=== PATIENT | female | born 2000 | race Two or more races ===

== ENCOUNTER 2024-08-28 15:21 | Emergency (ER) | payer MEDICAID, SELFPAY ==
[2024-08-28 15:22] VITALS: BMI 42.5
--- NOTE | 2024-08-28 15:44 | XR_ITS ---
Examination: Complete OB ultrasound, less than 14 weeks, transabdominal Date and time of exam: August 28, 2024 1634 hrs. Indications: Pelvic pain beginning 3 days ago Technique: Obstetrical ultrasound images less than 14 weeks performed via transabdominal imaging Findings: A normal shaped single intrauterine gestation is present in the uterus. CRL 3.3 cm corresponds to 10 weeks 1 day gestational age Cardiac motion 160 BPM Ultrasonographic survey of visible and placental structures unremarkable. Amniotic fluid volume appears appropriate for this estimated gestational age. Right ovary 3.3 cm arterial flow Left ovary 3.5 cm arterial flow 16mm follicular cyst Impression: Viable intrauterine gestation 10 weeks 1 day
--- NOTE | 2024-08-28 15:44 | PD.EDRME ---
Rapid Medical Screening Exam RME Arrival date/time: 08/28/24 15:21 24-year-old female G2, presents to the emergency department today with complaints of pelvic pain and abdominal pain currently reports being approximately 9 weeks Chief Complaint: Abdominal Pain
[2024-08-28 15:45] VITALS: BP 131/81; PULSE 96; RESP 18; TEMP 36.9; O2SAT 99
[2024-08-28 16:19] LABS: Basophils % (Auto) 0 % (0-2.5); Eosinophils % (Auto) 0 % (0-10); Hematocrit 35.7 % (36.0-46.0); Hemoglobin 11.7 g/dL (12.0-16.0); Immature Granulocytes % (Auto) 0 % (0-0); Immature Granulocytes Auto 0.02 Thou/mm3 (0.00-0.00); Lymphocytes % (Auto) 18 % (10-50); Mean Corpuscular HGB Conc 32.8 g/dl (31.0-37.0); Mean Corpuscular Hemoglobin 25.2 pg (25.0-35.0); Mean Corpuscular Volume 77 fL (80-100); Monocytes # (Auto) 0.6 Thou/mm3 (0.0-0.8); Monocytes % (Auto) 10 % (0-12); Neutrophils % (Auto) 72 % (37-80); Nucleated Red Blood Cell % 0 /100 WBC (0); Platelet Count 193 Thou/mm3 (140-440); RDW Standard Deviation 39.2 fL (36.4-46.3); Red Blood Count 4.64 Miln/mm3 (4.00-5.20); White Blood Count 5.6 Thou/mm3 (3.6-11.0)
[2024-08-28 16:56] LABS: Anion Gap 10 (7-16); BUN/Creatinine Ratio 10 Ratio (12-20); Blood Urea Nitrogen 6 mg/dL (9-23); Calcium 9.5 mg/dL (8.3-10.6); Carbon Dioxide 23.3 mMol/L (20.0-31.0); Chloride 103 mMol/L (98-107); Creatinine (Component) 0.6 mg/dL (0.6-1.3); Estimated Creatinine Clearance 172.6 mL/min (>60); Glucose 96 mg/dL (74-106); Osmolality,Calculated 269 (275-295); Potassium 3.2 mMol/L (3.4-5.1); Sodium 136 mMol/L (136-145); eGFR > 60 See Note
[2024-08-28 16:57] LABS: Alanine Aminotransferase 11 U/L (10-49); Albumin, Serum 4.1 gm/dL (3.5-5.0); Albumin/Globulin Ratio 1.5 (1.2-2.2); Alkaline Phosphatase 67 U/L (46-116); Aspartate Amino Transferase 16 U/L (0-34); Bilirubin,Total 0.3 mg/dL (0.3-1.2); Calcium (Corrected) 9.5 mg/dL (8.5-10.1); Globulin 2.7 gm/dL (2.3-3.5); Lipase 27 U/L (12-53); Total Protein 6.8 gm/dL (5.7-8.2)
[2024-08-28 17:08] LABS: Collection Type, Urine Clean Catch
[2024-08-28 17:12] LABS: HCG Qualitative,Urine Positive
[2024-08-28 17:21] LABS: Beta HCG,Quantitative 58935 mIU/mL (<5.0)
[2024-08-28 17:25] LABS: Bacteria,Urine Rare; Bilirubin,Urine Negative (Negative); Blood,Urine 1+ (Negative); Clarity,Urine Clear (Clear/Hazy); Color,Urine Lt-Yellow (Lt Yel-Yel); Culture Indicated,Urine Not Indicated; Glucose, Urine Negative (Negative); Ketones,Urine Negative (Negative); Leukocyte Esterase,Urine Negative (Negative); Nitrite,Urine Negative (Negative); PH,Urine 6.5 (5.0-7.0); Protein,Urine Negative (Neg - Trace); RBC,Urine 1 /hpf (0-3); Specific Gravity,Urine 1.007 (1.001-1.035); Squamous Epithelial Cell,Urine < 1 /hpf (0-5); Urobilinogen,Urine Negative mg/dL (0.0-1.0); WBC,Urine 1 /hpf (0-5)
--- NOTE | 2024-08-28 18:57 | PD.EDABDPN ---
ED Abdominal Pain RME/HPI General Chief Complaint: Abdominal Pain Stated complaint: 10WKS OB; GENERALIZED ABD PAIN X3DAYS Time seen by provider: 08/28/24 18:33 Arrival date/time: 08/28/24 15:21 24-year-old female A1 approximately 10 weeks presents emergency department complaining of lower abdominal pain that has been ongoing for 3 days. Patient denies any fever, chills, vomiting, vaginal bleeding, or dysuria. Source: patient Mode of arrival: ambulatory Limitations: no limitations RME / HPI RME / HPI narrative: 08/28/24 15:21 24-year-old female G2, presents to the emergency department today with complaints of pelvic pain and abdominal pain currently reports being approximately 9 weeks Related Data Allergies Allergy/AdvReac Type Severity Reaction Status Date / Time Penicillins Allergy Severe Hives Verified 08/28/24 15:26 Review of Systems Review of Systems Systems Reviewed: All systems reviewed, normal except as documented Constitutional Constitutional: Reports system reviewed and no additional complaints, except as documented, Denies body ache(s), Denies chills and Denies fever(s) Eyes Eyes: Reports system reviewed and no additional complaints, except as documented and Denies change in vision ENT Ears, Nose, Mouth, and Throat: Reports system reviewed and no additional complaints, except as documented, Denies disequilibrium, Denies dizziness, Denies sore throat and Denies vertigo Cardiovascular Cardiovascular: Reports system reviewed and no additional complaints, except as documented, Denies chest pain and Denies dyspnea Respiratory Respiratory: Reports system reviewed and no additional complaints, except as documented, Denies chest congestion, Denies cough and Denies dyspnea Gastrointestinal Gastrointestinal: Reports system reviewed and no additional complaints, except as documented, Reports abdominal pain, Denies nausea and Denies vomiting Musculoskeletal Musculoskeletal: Reports system reviewed and no additional complaints, except as documented, Denies abnormal gait and Denies arthralgias Integumentary/Breasts Skin/Breast: Reports system reviewed and no additional complaints, except as documented, Denies erythema, Denies rash and Denies wounds Neurologic Neurologic: Reports system reviewed and no additional complaints, except as documented, Denies abnormal gait, Denies disequilibrium, Denies dizziness and Denies vertigo Past Medical History Social History SMOKING STATUS: Light (< 1 pack/day) ED Exam General Limitations: Present no limitations General appearance: Present alert and in no apparent distress Head Head exam: Present atraumatic Eye Eye exam: Present normal appearance, PERRL and EOMI ENT ENT exam: Present normal exam, normal oropharynx and mucous membranes moist Neck Neck exam: Present normal inspection, full ROM and trachea midline Chest Chest inspection: Present normal inspection and symmetric chest wall rise Respiratory Respiratory exam: Present normal lung sounds bilaterally Cardiovascular Cardiovascular exam: Present regular rate, normal rhythm and normal heart sounds Abdominal Exam Abdominal exam: Present soft and normal bowel sounds Extremities Exam Extremities exam: Present normal inspection and full ROM Back Exam Back exam: Present normal inspection and full ROM Neurological Exam Neurological exam: Present alert, oriented X3 and CN II-XII intact Psychiatric Psychiatric exam: Present normal affect and normal mood Skin Skin exam: Present warm, dry, intact and normal color Course Quality Measures none Orders Category Date Time Status US OB <= 14 weeks fetus Stat Exams 08/28/24 15:44 Completed ABO/RH Type Stat Lab 08/28/24 15:51 Completed Beta HCG,Quantitative Stat Lab 08/28/24 15:51 Completed CBC Stat Lab 08/28/24 15:51 Completed Comprehensive Metabolic Panel Stat Lab 08/28/24 15:51 Completed HCG Qualitative,Urine Stat Lab 08/28/24 16:58 Completed Lipase Stat Lab 08/28/24 15:51 Completed UA, C/S IF [Urinalysis, C/S if Indicated] Stat Lab 08/28/24 16:58 Completed Vital Signs Vital signs: Vital Signs Temperature 98.5 F 08/28/24 15:45 Pulse Rate 96 08/28/24 15:45 Respiratory Rate 18 08/28/24 15:45 Blood Pressure 131/81 H 08/28/24 15:45 Pulse Oximetry (%) 99 08/28/24 15:45 Oxygen Delivery Method Room Air 08/28/24 15:45 99% room air with normal limits Abdominal Pain MDM MDM Narrative MDM Narrative:: 24-year-old female A1 approximately 10 weeks presents emergency department complaining of lower abdominal pain that has been ongoing for 3 days. Patient denies any fever, chills, vomiting, vaginal bleeding, or dysuria. CBC was unremarkable for any leukocytosis with hemoglobin of 11.7 CMP was unremarkable for any elevated LFTs or gross electro abnormalities. Beta-hCG 58 935. Urinalysis was unremarkable. Ultrasound findings: A normal shaped single intrauterine gestation is present in the uterus. CRL 3.3 cm corresponds to 10 weeks 1 day gestational age Cardiac motion 160 BPM Ultrasonographic survey of visible and placental structures unremarkable. Amniotic fluid volume appears appropriate for this estimated gestational age. Right ovary 3.3 cm arterial flow Left ovary 3.5 cm arterial flow 16mm follicular cyst Patient appears nontoxic and is hemodynamically stable. Patient instructed to follow-up with [facility] and return to emergency department for any worsening symptoms or as needed. Patient data External records reviewed:: None Clinical information provided by:: patient Social determinants that could affect healthcare access:: none Patient has the following chronic illnesses:: None How is presenting disease/condition affected by chronic disease/condition?: no chronic disease Evaluation data The following diagnostics were reviewed and interpreted by me:: lab results and radiology exam(s) Lab and/or radiology exams considered but not ordered:: Ordered Interpretation Summary: Interpreted by me Medications / Prescriptions Medications or Prescriptions considered but not ordered:: N/A Medication administrations:: N/A Consultations Consultation(s) initiated? (list below): No Diagnosis Differential diagnosis abdominal pain: abdominal pain, acute appendicitis, constipation, diverticulitis, endometriosis, gastroenteritis, pancreatitis, small bowel obstruction and other Most likely diagnosis given after review of the tests above:: Abdominal pain affecting Admission Indicated Admission indicated?: not indicated Admission Request Was there a request for admission?: No Disposition Plan Disposition Plan: Discharge Discharge Attestation Discharge Attestation: The patient and all family members were given an opportunity to ask questions and understood the discharge instructions. Discharge instructions specifically effects, indications for sooner follow up or return to the emergency department, and the expected course of current diagnosis. Patient condition: Stable Discharge Plan Plan Patient Disposition: HOME (Self Care) Disposition Comment: Stable Prescriptions/Referrals Referrals: No Primary/Family,Physician [Primary Care Provider] - In 1 week Problem List Clinical Impression: Abdominal pain affecting Patient/Caregiver Discharge Instructions Discharge Activity: activity as tolerated Education Materials: Abdominal Pain, ED Abdominal Pain Unkn Cause Fem Additional Instructions: Drink plenty of fluids and get plenty of rest. Pelvic rest until you see [facility]. Take Tylenol as needed for pain. Follow-up with [facility] in 2 to 3 days. Return to emergency department for any worsening symptoms or as needed. Print Language: Italian Stand Alone Forms: Emilia Award Info., Patient Portal Info Letter PA/RN INTERNSHIP Supervising Physician PA/RN INTERNSHIP Supervising Physician: Dr. Mcdonald
== END 2024-08-28 19:12 | disposition home or self-care (01) ==
PROVIDERS: Nurse Practitioner Primary Care; Emergency Provider Emergency Medicine
DX: O34.81 Maternal care for other abnormalities of pelvic organs, first trimester (principal); N83.02 Follicular cyst of left ovary; Z3A.10 10 weeks gestation of pregnancy
CPT/HCPCS: 36415; 76801; 80053; 81001; 81025; 83690; 84702; 85025; 86900; 86901; 99284

== ENCOUNTER 2025-02-26 10:37 | Outpatient (AMB) | payer MEDICAID, SELFPAY ==
[2025-02-26 11:01] VITALS: BP 106/61; PULSE 66; RESP 14; TEMP 35.5; O2SAT 98; BMI 44.6
--- NOTE | 2025-02-26 11:01 | OBCLNT_ITS ---
Vital Signs 02/26/25 11:01 Height 1.6 m Height Method Stated Weight 114.475 kg Weight Measurement Method Standing Scale BMI 44.6 BP 106/61 Blood Pressure Source Automatic Cuff Blood Pressure Location Left Upper Arm Position Sitting Respiration 14 Pulse 66 Pulse Source Monitor Temp 95.9 F L Temp Source Oral Pulse Oximetry (%) 98 Oxygen Delivery Method Room Air Allergies/Home Meds Allergies & Medications Allergies Penicillins Allergy (Severe, Verified 02/26/25 11:02) Hives Medication Reconciliation vits no.130-ferrous fum 27 mg iron-folic acid 800 mcg tablet ( Vitamin) 1 tab PO QDAY pregancy #60 tabs 02/26/25 [Rx] Intake Visit Data Collection New Patient or Established: Established Patient (seen at [facility] within 3 years) Reason for Visit:: INITIAL CARE Seen by Clinical Staff ONLY (RN/MA): No 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 Discussed the benefits of quitting smoking with patient. Encouraged patient to quit smoking and provided Cessation assistance materials and resources. Tobacco Use: Cigarette Years smoked: 9 Are you interested in Quitting?: No Questionnaires Covid-19 Vaccine Questionnaire Has patient been vacinated for Covid-19 Have you been vacinated for Covid-19: Yes PHQ-9 PHQ-2 Over the last 2 weeks, how often have you been bothered by any of the following problems? 1. Little interest or pleasure in doing things: not at all 2. Feeling down, depressed, or hopeless: not at all Total score: 0 PHQ-9 3. Trouble falling or staying asleep, or sleeping too much: Not at all 4. Feeling tired or having little energy: Not at all 5. Poor appetite or overeating: Not at all 6. Feeling bad about yourself - or that you are a failure or have let yourself or your family down: Not at all 7. Trouble concentrating on things, such as reading the newspaper or watching television: Not at all 8. Moving or speaking so slowly that other people could have noticed? - Or the opposite - being so fidgety or restless that you have been moving around a lot more than usual: not at all 9. Thoughts that you would be better off or of hurting yourself in some way: Not at all Total score: 0 Source: Developed by Drs. Brian Romo, Johanne Tate, Jarrett Ruiz and colleagues, with an educational castillo from [employer]. Depression screen completed yes Social History Living Situation History Marital Status: Lives With: Family Housing: House Tobacco History Smoking Status: Light (< 1 pack/day) Second Hand Smoke Exposure: No Alcohol History Alcohol Intake: Former Domestic Abuse History Do You Feel Safe at Home: Yes History of Present Illness HPI Narrative 24-year-old 2 para 0 for OBI. Patient is a transfer from Dr. Hathaway with limited records. Patient was a no-show to do all of her labs. Patient also did not go for her ultrasound. She did have an ultrasound in the ER August 28, 2024. Patient was 10 weeks 1 day. And this gave EDC March 26, 2025. Patient has a history of irregular menses and poor dates. Her last. June 18, 2024. And this also gave due date March 25, 2025. Denies social habits. Denies surgery. Denies chronic illness. Patient's last visit with OB was in September. Reports movement. Denies leaking or bleeding. No contractions. OB Initial Visit OB Flowsheet OB Flowsheet Initial Weight: Not Recorded Date -?-?-?-?-?-?--?-?-?-?-?-?- EGA Weight BP Alb Glu CTX Pres Fundal ht FHR Mov Dilation Station Effacement Hx Notes Visit Note 02/26/25 -?-?-?-?-?-?-?-?-?-?-?-?- 36w 1d 114.475 kg 106/61 absent cephalic 35 15 5 active 24-year-old 2 para 0 for OBI. Patient is a transfer from Dr. Hathaway. Patient was noncompliant with care. Her last visit was in September. History of irregular menses. Her last. June 18, 2024. This gives due date March 25, 2025. First ultrasound was at [facility]. Patient was 10 weeks 1 day on August 28, 2024. Patient did not do any of her labs. Nor did she do any ultrasounds that were scheduled. Denies leaking, denies bleeding, denies contractions OB panel today w ith 1 hour GTT, A1c. I also did her NIPT and carrier screening. GBS and new swab for GC and chlamydia were done today. Patient then sent to [facility] for and complete OB and NST. Discussed labor precautions and kick count. Discussed danger signs symptoms ER precautions return a week OB Menstrual History Menstrual reliability: definite Flow: heavy Menstrual regularity: regular Monthly: Yes Age at menarche: 12 On control pills at conception: No OB History : 2 Hx Total # of Abortions (Spontaneous & Elective): 1 # of Living Children: 0 Infection History & Risk Evaluation History of STDs: none Genetic Screening & History Genetic Screening/Teratology Counseling - Includes patient, baby's father, or anyone in either family with: 1. Patient's age 35 years or older as of estimated date of delivery: No 2. Thalassemia (Marshallese, Danish, Mediterranean, or Background); MCV less than 80: No 3. Neural Tube Defect (Meningomyelocele, Spina Bifida, or Anencephaly): No 4. Congenital Heart Defect: No 5. Down Syndrome: No 6. Teja-Sachs (Ashkenazi Tenriism, Cajun, Portuguese Adel): No 7. Waqar Disease (Ashkenazi Tenriism): No 8. Familial Dysautonomia (Ashkenazi Tenriism): No 9. Sickle Cell Disease or Trait (): No 10. Hemophilia or other blood disorders: No 11. Muscular Dystrophy: No 12. Cystic Fibrosis: No 13. Herminio's Chorea: No 14. Mental Retardation/Autism: Yes (BABY FATHER NEPHEW ) 15. Other inherited genetic or chromosomal disorder: No 16. Maternal Metabolic Disorder (EG,TYPE 1 Diabetes, PKU): No 17. Patient or baby's father had a child with defects not listed above: No 18. Recurrent loss or a stillbirth: No 19. Medications (including supplements, vitamins, herbs or otc drugs)/illicit/recreational drugs/alcohol since last menstrual period: No 20. Any other: No Infection History 1. Live with someone with TB or exposed to TB: No 2. Rash or viral illness since last menstrual period: No 3. Hepatitis B,C: No Other (see comments) Source: [employer] Review of Systems Review of Systems Systems Reviewed: All systems reviewed, normal except as documented Exam General Limitations: no limitations General Appearance: alert, in no apparent distress, comfortable, cooperative, healthy appearing, well developed and well groomed Head Head exam: atraumatic, normocephalic and normal inspection ENT ENT exam: Present normal exam, normal oropharynx and mucous membranes moist Neck Neck exam: Present normal inspection, full ROM and trachea midline Chest Chest inspection: Present normal inspection and symmetric chest wall rise Resp Respiratory exam: Present normal lung sounds bilaterally Card Cardiovascular exam: Present regular rate, normal rhythm and normal heart sounds Abdominal Abdominal exam: Present soft and normal bowel sounds Skin Skin exam: Present warm, dry, intact and normal color Office Procedures OB Clinic LOC & Office Proc's Nursing/Assessment Patient Status: Established Patient OB Clinic Nursing Assessment: Medication Reconciliation, Update PMH in EMR and Vital Signs OB Clinic Coordination of Care: Complex Care and Chronic Disease 1-5, Education Complex Pt/Fam, Consent,records obtained, informed consent, Education Simp Pt/Fam, 1 Ins Authorization, Lab and Imaging orders, Results/Orders obtained and Staff clarify orders Special Needs: Heart tones Established Patient Charge Established Patient Point Assignment: 170 Established Patient Point Charge: EP Level 5 (160-above) Assessment & Plan Diagnosis / Problem List (1) Encounter for supervision of high risk in third trimester, antepartum: Status: Acute (2) Obesity complicating , third trimester: Status: Acute Qualifiers: Obesity type affecting : severe obesity due to excess calories Qualified Code(s): O99.213 - Obesity complicating , third trimester; E66.01 - Morbid (severe) obesity due to excess calories Plan Complete OB panel today with 1 hour GTT, hemoglobin A1c, NIPT and carrier screens. GBS and new swab for GC and chlamydia were done today.. Patient sent to labor and delivery for complete OB and NST. Discussed kick count and labor precautions. Increase fluids. Refill prenatals. Return a week OB to Additional Plan Follow Up: 1 Week (obc)
== END 2025-02-26 11:44 | disposition home or self-care (01) ==
PROVIDERS: Supervising Provider Advanced Practice Midwife; Visit Provider Advanced Practice Midwife
DX: O09.893 Supervision of other high risk pregnancies, third trimester (principal); O99.213 Obesity complicating pregnancy, third trimester; Z3A.36 36 weeks gestation of pregnancy; Z36.85 Encounter for antenatal screening for Streptococcus B; O99.333 Smoking (tobacco) complicating pregnancy, third trimester; F17.210 Nicotine dependence, cigarettes, uncomplicated; Z71.6 Tobacco abuse counseling; Z88.0 Allergy status to penicillin
CPT/HCPCS: 99215; G0463

== ENCOUNTER 2025-03-06 10:54 | Outpatient (AMB) | payer MEDICAID, SELFPAY ==
[2025-03-06 11:19] VITALS: BP 138/83; PULSE 70; RESP 18; TEMP 36.2; O2SAT 98; BMI 43.6
--- NOTE | 2025-03-06 11:19 | OBCLNT_ITS ---
Vital Signs 03/06/25 11:19 Height 1.6 m Height Method Stated Weight 111.584 kg Weight Measurement Method Standing Scale BMI 43.6 BP 138/83 H Blood Pressure Source Automatic Cuff Blood Pressure Location Left Upper Arm Position Sitting Respiration 18 Pulse 70 Pulse Source Monitor Temp 97.2 F Temp Source Oral Pulse Oximetry (%) 98 Oxygen Delivery Method Room Air Allergies/Home Meds Allergies & Medications Allergies Penicillins Allergy (Severe, Verified 03/06/25 13:16) Hives Medication Reconciliation vits no.130-ferrous fum 27 mg iron-folic acid 800 mcg tablet ( Vitamin) 1 tab PO QDAY pregancy #60 tabs 02/26/25 [Rx Confirmed 03/06/25] azithromycin 500 mg tablet 1,000 mg (2 x 500 mg) PO QDAY 1 day #2 tabs 03/06/25 [Rx] erythromycin 500 mg tablet 500 mg PO BID infection 7 days #14 tabs 03/06/25 [Rx] metronidazole 500 mg tablet 500 mg PO BID 7 days #14 tabs 03/06/25 [Rx] Intake Visit Data Collection New Patient or Established: Established Patient (seen at [facility] within 3 years) Reason for Visit:: [facility] LAB RESULTS Seen by Clinical Staff ONLY (RN/MA): No Merry Go Round Operator Required: No Do You Feel Safe at Home: Yes Authorities Contacted: N/A PCP or OBGYN visit in last 3 months: Yes Date of Last PCP or OBGYN visit: 02/26/25 Hx Now: Yes Are you currently on any form of Control: No Pain Present Currently: No Pain Scale Used: Krishna-Marsh/Numerical Pain scale:: 0 Smoking Status Smoking Status: Light (< 1 pack/day) Cessation Counseling Provided: NICANOR was advised that quitting smoking is the single most important factor to protect the health of themselves and their family. Discussed the benefits of quitting smoking with patient. Encouraged patient to quit smoking and provided Cessation assistance materials and resources. Tobacco Use: Cigarette Years smoked: 9 Are you interested in Quitting?: No Questionnaires Covid-19 Vaccine Questionnaire Has patient been vacinated for Covid-19 Have you been vacinated for Covid-19: Yes PHQ-9 PHQ-2 Over the last 2 weeks, how often have you been bothered by any of the following problems? 1. Little interest or pleasure in doing things: not at all 2. Feeling down, depressed, or hopeless: not at all Total score: 0 PHQ-9 3. Trouble falling or staying asleep, or sleeping too much: Not at all 4. Feeling tired or having little energy: Not at all 5. Poor appetite or overeating: Not at all 6. Feeling bad about yourself - or that you are a failure or have let yourself or your family down: Not at all 7. Trouble concentrating on things, such as reading the newspaper or watching television: Not at all 8. Moving or speaking so slowly that other people could have noticed? - Or the opposite - being so fidgety or restless that you have been moving around a lot more than usual: not at all 9. Thoughts that you would be better off or of hurting yourself in some way: Not at all Total score: 0 If you checked off any problems, how difficult have these problems made it for you to do your work, take care of things at home, or get along with other people?: not difficult at all Source: Developed by Drs. Brian Romo, Johanne Tate, Jarrett Ruiz and colleagues, with an educational castillo from [employer]. Depression screen completed yes Social History Living Situation History Marital Status: Lives With: Family Housing: House Tobacco History Smoking Status: Light (< 1 pack/day) Second Hand Smoke Exposure: No Alcohol History Alcohol Intake: Former Domestic Abuse History Do You Feel Safe at Home: Yes Care OB Visit Log OB Flowsheet Initial Weight: Not Recorded Date -?-?-?-?-?-?-?-?-?-?-?-?- EGA Weight BP Alb Glu CTX Pres Fundal ht FHR Mov Dilation Station Effacement Hx Notes Visit Note 02/26/25 -?-?-?-?-?-?-?-?-?-?-?-?- 36w 1d 114.475 kg 106/61 absent cephalic 35 15 5 active 24-year-old 2 para 0 for OBI. Patient is a transfer from Dr. Hathaway. Patient was noncompliant with care. Her last visit was in September. History of irregular menses. Her last. June 18, 2024. This gives due date March 25, 2025. First ultrasound was at [facility]. Patient was 10 weeks 1 day on August 28, 2024. Patient did not do any of her labs. Nor did she do any ultrasounds that were scheduled. Denies leaking, denies bleeding, denies contractions OB panel today w ith 1 hour GTT, A1c. I also did her NIPT and carrier screening. GBS and new swab for GC and chlamydia were done today. Chetna ent then sent to [facility] for and complete OB and NST. Discussed labor precautions and kick count. Discussed danger signs symptoms ER precautions return a week OB MARLY Calculator Estimated Delivery Date Method Current WG Current Estimate 03/25/25 LMP (Certain) 37w 2d Other Estimates 03/25/25 Ultrasound #1 37w 2d Notes Visit Date: 02/26/25 Last Updated by: Bella Ferreira CNM 24 yo . EDC: 03/26/25. sono: 08/28/24; 10w1. EDC: 03/26/25 Office Procedures OB Clinic LOC & Office Proc's Nursing/Assessment Patient Status: Established Patient OB Clinic Nursing Assessment: Medication Reconciliation, Update PMH in EMR and Vital Signs OB Clinic Coordination of Care: Education Complex Pt/Fam, Consent,records obtained, informed consent, Lab and Imaging orders, Ref for ancillary service and Staff clarify orders Established Patient Charge Established Patient Point Assignment: 110 Established Patient Point Charge: EP Level 3 (80-115) Assessment & Plan Diagnosis / Problem List (1) Obesity complicating , third trimester: Status: Acute Qualifiers: Obesity type affecting : severe obesity due to excess calories Qualified Code(s): O99.213 - Obesity complicating , third trimester; E66.01 - Morbid (severe) obesity due to excess calories (2) Encounter for supervision of high risk in third trimester, antepartum: Status: Acute (3) Positive Chlamydia PCR: Status: Acute Plan Zithromax 1 g p.o. x 1 given to partner. Patient was given erythromycin 500 p.o. twice daily x 7 days because of penicillin allergy. Patient was given a slip for 3-hour GTT. I discussed diet and weight. Patient sent to labor and delivery for complete OB and NST BPP. Because of obesity. Will treat patient GBS positive in labor with vancomycin 1 g daily. Discussed labor precautions and kick counts twice a day. Increase fluids. Discussed diet. Return a week OB check
== END 2025-03-06 11:50 | disposition home or self-care (01) ==
LOC: HODSOBC 10:54
PROVIDERS: Supervising Provider Advanced Practice Midwife; Visit Provider Advanced Practice Midwife
DX: O09.893 Supervision of other high risk pregnancies, third trimester (principal); O99.213 Obesity complicating pregnancy, third trimester; O98.313 Other infections with a predominantly sexual mode of transmission complicating pregnancy, third trimester; A56.8 Sexually transmitted chlamydial infection of other sites; Z3A.37 37 weeks gestation of pregnancy; O99.333 Smoking (tobacco) complicating pregnancy, third trimester; O99.820 Streptococcus B carrier state complicating pregnancy; F17.210 Nicotine dependence, cigarettes, uncomplicated; Z71.6 Tobacco abuse counseling; Z88.0 Allergy status to penicillin
CPT/HCPCS: 99213; G0463

== ENCOUNTER 2025-03-06 12:04 | Outpatient (CLI) | payer MEDICAID, SELFPAY ==
[2025-03-06 12:10] VITALS: BP 120/82; BP 120/83; PULSE 83; RESP 16; RESP 98; TEMP 36.9; O2SAT 98
--- NOTE | 2025-03-06 12:10 | XR_ITS ---
Examination: Biophysical profile, ultrasound Date and time of exam: March 03, 2025, 1244 hrs. Indications: Diagnosis maternal obesity Technique: Multiple transabdominal sonographic images of the pelvis abdomen obtained. Attention is directed to the breathing movement, gross body movement, amniotic fluid volume and tone. Findings: Amniotic fluid index 13.0 cm Total biophysical profile is 8 of 8. breathing movement is 2. Gross body movement is 2. tone is 2. Qualitative amniotic fluid volume is 2 Impression: Biophysical profile is 8 of 8.
--- NOTE | 2025-03-06 12:10 | XR_ITS ---
Examination: Complete OB ultrasound greater than 14 weeks Date and time of exam: March 06 thousand 25, 1217 hrs. Clinical diagnosis maternal obesity Findings: Viable intrauterine single fetus with single amniotic sac presentation cephalic Cardiac motion 136 BPM. Placenta posterior grade 2. Umbilical cord insertion seen. Amniotic fluid index 11.0 cm. spine maternal right. Cervix ovaries obscured by bowel gas. Composite estimated gestational age based on BPD, head circumference, abdominal circumference, femur length is 34 weeks 4 days Estimated weight 2381 g. Survey of intracranial anatomy, spinal anatomy, abdominal anatomy, four-chamber heart performed with no abnormalities identified. Impression: Viable intrauterine gestation cephalic presentation.
[2025-03-06 12:16] VITALS: BMI 43.6
== END 2025-03-06 13:33 | disposition home or self-care (01) ==
LOC: S4S1 12:07 → S4SX 12:08
PROVIDERS: Referring Provider Obstetrics & Gynecology; Visit Provider Advanced Practice Midwife
DX: Z34.90 Encounter for supervision of normal pregnancy, unspecified, unspecified trimester (principal); Z3A.00 Weeks of gestation of pregnancy not specified
CPT/HCPCS: 59025; 76805; 76819

== ENCOUNTER 2025-03-08 23:23 | Inpatient (IN) | payer MEDICAID, SELFPAY ==
[2025-03-08 23:25] VITALS: BMI 44.1
[2025-03-08 23:35] VITALS: BP 120/63; PULSE 53; PULSE 67; RESP 100; RESP 18; TEMP 36.8
[2025-03-08 23:38] VITALS: PULSE 67; O2SAT 100
[2025-03-08 23:43] VITALS: PULSE 57; O2SAT 100
[2025-03-08 23:48] VITALS: PULSE 71; O2SAT 100
[2025-03-08 23:53] VITALS: PULSE 60; O2SAT 98
[2025-03-08 23:58] VITALS: PULSE 63; O2SAT 100
[2025-03-09] VITALS (24 sets, daily range): BP systolic 60–207; BP diastolic 24–100; PULSE 56–190; RESP 16–100; TEMP 36.7–37.1; O2SAT 98–100; BMI 44.1
[2025-03-09] MEDS: MINERAL OIL 30 ML UDC TOP (01:05)
[2025-03-09] MEDS: OXYTOCIN in NS 20 units 20 UNIT/1,000 ML BAG 125 UNIT IV (01:12)
[2025-03-09 01:13] LABS: Basophils # (Auto) 0.0 Thou/mm3 (0.0-0.2); Basophils % (Auto) 0 % (0-2.5); Eosinophils # (Auto) 0.0 Thou/mm3 (0.0-0.5); Eosinophils % (Auto) 0 % (0-10); Hematocrit 33.5 % (36.0-46.0); Hemoglobin 11.0 g/dL (12.0-16.0); Immature Granulocytes Auto 0.04 Thou/mm3 (0.00-0.00); Lymphocytes # (Auto) 1.7 Thou/mm3 (1.0-4.8); Lymphocytes % (Auto) 17 % (10-50); Mean Corpuscular HGB Conc 32.8 g/dl (31.0-37.0); Mean Corpuscular Hemoglobin 25.5 pg (25.0-35.0); Mean Corpuscular Volume 78 fL (80-100); Monocytes # (Auto) 0.7 Thou/mm3 (0.0-0.8); Monocytes % (Auto) 7 % (0-12); Neutrophils # (Auto) 8.0 Thou/mm3 (1.8-7.7); Neutrophils % (Auto) 76 % (37-80); Nucleated Red Blood Cell # 0.00 Thou/mm3 (0.00-0.00); Nucleated Red Blood Cell % 0 /100 WBC (0); Platelet Count 217 Thou/mm3 (140-440); RDW Standard Deviation 39.2 fL (36.4-46.3); Red Blood Count 4.32 Miln/mm3 (4.00-5.20); White Blood Count 10.5 Thou/mm3 (3.6-11.0)
[2025-03-09] MEDS: OXYTOCIN INJ 10 UNIT/ML VIAL IM (01:15)
[2025-03-09] MEDS: BENZO/LANO/ALOE (Dermoplast) 60 GM CAN 1 SPRAY TOP (01:20)
[2025-03-09 01:43] LABS: HIV (1&2) Antibody Rapid Non-Reactive
[2025-03-09] MEDS: TRANEXAMIC ACID 1,000 MG IVPB 1,000 MG/100 ML BAG 200 MG IV (01:45)
--- NOTE | 2025-03-09 01:59 | PD.LDHP ---
Documentation for date of: 03/09/25 OB Labor/Induct. HPI History of Present Illness Chief complaint: labor : 2 Para: 0 Term pregnancies: 0 pregnancies: 0 Living children: 0 History of Abortions: Spontaneous and Elective: 1 History of Vaginal deliveries: 0 History of sections: No History of : No Date of last menstrual period: 06/18/24 MARLY: 03/25/25 Gestational Age (weeks): 37 Gestational Age (days): 5 Gestational age based on last menstrual period: 37 History of present illness: 24-year-old 2 para 0 admitted for complaints of contractions since 11:00 last night. Patient has been followed for care with Dr. Hathaway and at [facility] women's clinic. Patient was late to care at her first appointment with Dr. Hathaway and then limited care throughout. Her last period June 18, 2024. This gives due date March 25, 2025. First ultrasound August 28, 2024. Patient was 10 weeks 1 and this confirmed dates. No labs are available at this time. Patient is GBS positive. She is allergic to penicillin so she will be started on vancomycin daily. Patient has a history of chlamydia positive with this . She was given a prescription for erythromycin 500 mg to take twice daily on March 06. And she was also given a prescription for partner treatment. She was also given treatment for positive bacterial vaginosis. Patient did not nut picker her medication .gonorrhea was negative. Patient had a abnormal normal 1 hour but her 3-hour GTT was normal. Denies social habits. Denies surgery. Denies chronic illness. And she denies leaking or bleeding at this time History of Present Dating criteria: based on 1st trimester US only Ultrasounds: normal 1st trimester US Obstetrical complications: none Medical complications: none Labs Labs: Positive: Group Beta Strep and Unknown: RPR, Hepatitis B, Rubella Titre, HIV, Chlamydia, Gonorrhea, Herpes Type 1, Herpes Type 2 and Covid-19 Review of Systems Review of Systems Systems Reviewed: All systems reviewed, normal except as documented Past Medical History Surgical History SURGICAL: Negative Section Meds Home Medications and Allergies Allergies Allergy/AdvReac Type Severity Reaction Status Date / Time Penicillins Allergy Severe Hives Verified 03/08/25 23:29 OB Exam Physical Exam Vital signs: Pulse Resp BP Pulse Ox 73 16 135/71 H 100 03/09/25 01:53 03/09/25 00:30 03/09/25 01:53 03/09/25 00:23 Narrative: Alert and oriented. Normal heart rate and rhythm. Lungs clear no wheezes. Gravid abdomen. Gynecoid pelvis. Estimated weight 6 pounds. Vaginal exam admission was 80%, 3, -1. Vertex. Intact. heart rate is category 1 with accelerations and moderate variability and regular contractions Detailed Labor and Delivery Exam Dilation (cm): 3 Effacement (%): 80 Cervix position: mid station: -1 Consistency: soft Presentation: Vertex Cervical ripeness score: 8 Membranes: intact Baseline heart rate: 135 monitor accelerations: 15x15 monitor decelerations: None retirement variability: Moderate (11-25) Contraction frequency (min): 3-4 Contraction duration (sec): 35 Tachysystole: No Contraction intensity: Moderate OB Results Labs 03/09/25 00:58 Labs: Short CBC 03/09/25 Range/Units 00:58 WBC 10.5 (3.6-11.0) Thou/mm3 Hgb 11.0 L (12.0-16.0) g/dL Hct 33.5 L (36.0-46.0) % Plt Count 217 (140-440) Thou/mm3 OB Assessment & Plan Assessment and Plan (1) Normal labor and delivery: Status: Acute Additional Plan Induction method: none Plan: anticipate NVD, GBS prophylaxis tx and consult MD diamond
--- NOTE | 2025-03-09 02:11 | PD.LDDELS ---
Data ([place]) Data Hx Section: No : 2 Term: 0 : 0 Livin Abortions: Spontaneous & Theraputic: 1 Delivery Data ([place]) Labor Data Initiation of labor: Spontaneous Induction/Augmentation Agent: None ROM date: 03/09/25 ROM time: 00:30 Amniotic membrane rupture type: Spontaneous Amniotic fluid description: Clear Delivery Data EDC: 03/25/25 EDC calculated by:: LMP/early US confirmation Date of arrival to unit: 03/08/25 Time of arrival to unit: 23:23 Onset of labor date: 03/08/25 Onset of labor time: 23:00 Complete dilation date: 03/09/25 Complete dilation time: 00:55 delivery date: 03/09/25 delivery time: 01:07 Gestational age (weeks): 37 Gestational age (days): 5 Placenta delivery date: 03/09/25 Placenta delivery time: 01:12 Stage 1 total time: Labor - Stage 1 Duration 1 hours and 55 minutes Delivered by: odalys blue Delivery nurse: marco a zepeda rn Neworn nurse: manas rivas rn Spring Up Supervisor at delivery: No Support person(s) at delivery: fob Delivery Method Delivery method: Normal Vaginal Delivery Presentation: Vertex position: OA Anesthesia Type Anesthesia Type: None Delivery Room Medications Delivery room medications: Pitocin 10 u IM, Pitocin 20 u IV and Cytotec 800 CO Placenta Placenta delivery description: Spontaneous Cord blood sent to lab: Yes cord blood collection: Cord Blood Type Episiotomy Episiotomy description: None Lacerations #1: Vaginal: 1st degree (1 stitch) Perineal repair Sutures used for repair: 3.0 Vicryl EBL Estimated blood loss (ml): 400 Umbilical Cord cord description: 3 Vessels [place] Data ([place]ue) [place] Data order: 1 's gender: Male weight (gms): 2770 g Weight (pounds): 6 lbs and 1.7 ozs 1 minute: 8 5 minutes: 9
[2025-03-09 02:48] LABS: Hepatitis B Surface Antigen Non Reactive (Non React); Rubella, IgG Antibody Reactive (Immune)
[2025-03-09 02:52] LABS: Syphilis Nonreactive (Nonreactive)
[2025-03-09 05:45] LABS: Amphetamine/Metham Scrn,Ur OB Negative (Negative); Benzoylecgonine Screen, Ur OB Negative (Negative); Opiate Screen,Urine OB Negative (Negative); THC Screen,Urine OB Positive (Negative)
[2025-03-09 05:47] LABS: THC U Confirm* See Sep Rpt
[2025-03-09] MEDS: AZITHROMYCIN 250 MG TABLET 1000 MG PO (08:23)
[2025-03-09] MEDS: DOCUSATE SOD 100 MG CAPSULE PO ×2 (08:23→20:17)
[2025-03-09] MEDS: PRENATAL VITAMIN/FE FUM/FA TABLET 1 TAB PO (08:23)
--- NOTE | 2025-03-09 08:30 | ESDS_ITS ---
DS: Providers Provider Date of admission: 03/09/25 00:41 Primary care physician: Physician No Primary/Family Admitting Provider: Denver Hung MD Attending Provider on Admission: Ulices Martin MD Consults: 03/09/25 02:31 Referral Routine Comment: Attending Provider on DC: Ulices Martin MD Discharging Provider: Ulices Martin MD DS: Diagnosis Problem List Completed Was Problem List Reviewed/Reconciled?: Yes Summary/Hosp Course Brief History: 24-year-old 2 para 0 admitted for complaints of contractions since 11:00 last night. Patient has been followed for care with Dr. Hathaway and at [facility] women's clinic. Patient was late to care at her first appointment with Dr. Hathaway and then limited care throughout. Her last period June 18, 2024. This gives due date March 25, 2025. First ultrasound August 28, 2024. Patient was 10 weeks 1 and this confirmed dates. No labs are available at this time. Patient is GBS positive. She is allergic to penicillin so she will be started on vancomycin daily. Patient has a history of chlamydia positive with this . She was given a prescription for erythromycin 500 mg to take twice daily on March 06. And she was also given a prescription for partner treatment. She was also given treatment for positive bacterial vaginosis. 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 Patient had a abnormal normal 1 hour but her 3-hour GTT was normal. Denies social habits. Denies surgery. Denies chronic illness. And she denies leaking or bleeding at this time Peripartum Data Delivery Method: Normal Vaginal Delivery Episiotomy Description: None Time Spent with Patient Time attestation: Total time spent providing and/or coordinating discharge services: Exam Vital Signs Temp Pulse Resp BP Pulse Ox O2 Del Method 98.1 F 65 16 132/75 H 99 Room Air 03/09/25 04:08 03/09/25 04:08 03/09/25 04:08 03/09/25 04:08 03/09/25 04:08 03/09/25 04:08 Discharge Plan Plan Patient Disposition: HOME (Self Care) Patient condition on transfer: Stable Prescriptions/Referrals Prescriptions/Med Rec: No Action Vitamin 27 mg iron- 800 mcg tablet 1 tab PO QDAY Qty: 60 2RF metronidazole 500 mg tablet 500 mg PO BID 7 Days Qty: 14 0RF erythromycin 500 mg tablet 500 mg PO BID 7 Days Qty: 14 0RF Rx Instructions: for + CT/allergy to PCN Referrals: No Primary/Family,Physician [Primary Care Provider] - Patient/Caregiver Discharge Instructions Meds to Beds: No Discharge Activity: resume usual activities Print Language: Colombian Activity Restrictions/Additional Instructions: Discharge home with baby. Okay to board if the baby is held. Continue vitamins and iron. Tylenol ibuprofen for pain. Discussed danger signs and symptoms and ER precautions. No sex. I discussed sourav the importance of patient picking up her prescription for metronidazole and the partner treatment packet for the azithromycin and giving it to him. Discussed signs symptoms of infection. Social service today and [place] high risk. Return in 3 weeks visit Stand Alone Forms: Emilia Award Info., Patient Portal Info Letter Discharge Order Discharge Orders: Discharge (Routine); Ordered 03/10/25 Ordered By: Bella Ferreira Planned Discharge Date 03/10/25
[2025-03-09 10:43] LABS: Basophils # (Auto) 0.0 Thou/mm3 (0.0-0.2); Basophils % (Auto) 0 % (0-2.5); Eosinophils # (Auto) 0.0 Thou/mm3 (0.0-0.5); Eosinophils % (Auto) 0 % (0-10); Hematocrit 28.6 % (36.0-46.0); Hemoglobin 9.4 g/dL (12.0-16.0); Immature Granulocytes Auto 0.03 Thou/mm3 (0.00-0.00); Lymphocytes # (Auto) 1.4 Thou/mm3 (1.0-4.8); Lymphocytes % (Auto) 13 % (10-50); Mean Corpuscular HGB Conc 32.9 g/dl (31.0-37.0); Mean Corpuscular Hemoglobin 26.0 pg (25.0-35.0); Mean Corpuscular Volume 79 fL (80-100); Monocytes # (Auto) 0.7 Thou/mm3 (0.0-0.8); Monocytes % (Auto) 7 % (0-12); Neutrophils # (Auto) 8.8 Thou/mm3 (1.8-7.7); Neutrophils % (Auto) 80 % (37-80); Nucleated Red Blood Cell # 0.00 Thou/mm3 (0.00-0.00); Nucleated Red Blood Cell % 0 /100 WBC (0); Platelet Count 180 Thou/mm3 (140-440); RDW Standard Deviation 40.4 fL (36.4-46.3); Red Blood Count 3.61 Miln/mm3 (4.00-5.20); White Blood Count 11.0 Thou/mm3 (3.6-11.0)
[2025-03-09] MEDS: IBUPROFEN TAB 400 MG TABLET 800 MG PO (11:48)
[2025-03-09 12:06] LABS: Chlamydia trachomatis PCR Positive (Not Detect); Neisseria Gonorrhoeae DNA PCR Negative (Not Detect); Trichomonas Negative (Negative)
--- NOTE | 2025-03-09 15:51 | PC.CC ---
1000-ASW attempted to complete an assessment with the pt at bedside, but she was in too much pain and could not relax. Pt reported she did not feel well and felt as if she was having an anxiety attack. ASW left community resources for the pt such as [facility], 8 and links to the [facility]. ASW could not complete the assessment was pt was to ill and in pain to speak. ASW informed the assigned RN of the issue. ASW informed assigned RN that either myself or another SW will be present to complete the assessment.
[2025-03-10] MEDS: IBUPROFEN TAB 400 MG TABLET 800 MG PO (03:31)
[2025-03-10 04:02] VITALS: BP 111/72; PULSE 63; RESP 17; TEMP 36.5; O2SAT 98
[2025-03-10 07:00] VITALS: BP 125/85; PULSE 69; RESP 16; TEMP 36.6; O2SAT 98
[2025-03-10] MEDS: PRENATAL VITAMIN/FE FUM/FA TABLET 1 TAB PO (08:23)
[2025-03-10] MEDS: DOCUSATE SOD 100 MG CAPSULE PO (08:23)
--- NOTE | 2025-03-10 09:01 | ESPR_ITS ---
Subjective Subjective Interval history: No complaints of pain. No dizziness. Bonding. Patient reports that the father the baby is being picked up and placed in [facility]. Limited family support Exam Vital Signs Temp Pulse Resp BP Pulse Ox O2 Del Method 97.8 F 69 16 125/85 H 98 Room Air 03/10/25 07:00 03/10/25 07:00 03/10/25 07:00 03/10/25 07:00 03/10/25 07:00 03/10/25 07:00 Narrative Exam Lungs clear. No wheezes. Euthyroid. Breasts soft no signs of infection. Abdomen soft nontender no masses perineum intact well-healed. No swelling. Small lochia. Uterus is well involuted. To below. Negative Homans' sign Objective Labs 03/09/25 10:20 Labs: Laboratory Results - last 24 hr 03/09/25 03/09/25 04:30 10:20 WBC 11.0 RBC 3.61 L Hgb 9.4 L Hct 28.6 L MCV 79 L MCH 26.0 MCHC 32.9 RDW Std Deviation 40.4 Plt Count 180 D Neut % (Auto) 80 Lymph % (Auto) 13 Martin % (Auto) 7 Eos % (Auto) 0 Baso % (Auto) 0 Neut # (Auto) 8.8 H Lymph # (Auto) 1.4 Martin # (Auto) 0.7 Eos # (Auto) 0.0 Baso # (Auto) 0.0 Immature Gran # (Auto) 0.03 H Absolute Nucleated RBC 0.00 Immature Gran % 0 Nucleated RBC % 0 Chlam trachomat DNA PCR Positive N.gonorrhoeae DNA (PCR) Negative Trichomonas DNA Probe Negative Assessment & Plan Problem List (1) Normal labor and delivery: Status: Acute Assessment Comment Assessment comment: A lot of even went to the24 hr pp Plan Comment Plan Comment: Discharge home with baby. Continue vitamins. I discussed heavily with patient safe sex practices and the portance of picking up her medications at the pharmacy and giving her partner he is treatment packet. Patient was also advised to picker and sorter load and unload her metronidazole from the pharmacy and take it twice a day for 7 days. No sex. Comfort measures for her small vaginal laceration. Discussed signs symptoms of infection and ER precautions with parameters. And I discussed danger signs and symptoms increase fluids return for an OB check in 3 weeks. She will get social and human services assistant today and [place] high risk Time Spent With Patient Time: Total time spent is greater than 50% in coordination of care (as documented) at patient's floor/unit and/or counseling patient:
--- NOTE | 2025-03-10 09:07 | ESDS_ITS ---
DS: Providers Provider Date of admission: 03/09/25 00:41 Primary care physician: Physician No Primary/Family Admitting Provider: Denver Hung MD Attending Provider on Admission: Ulices Martin MD Consults: 03/09/25 02:31 Referral Routine Comment: Attending Provider on DC: Bella Ferreira CNM Discharging Provider: Bella Ferreira CNM DS: Diagnosis Problem List Completed Was Problem List Reviewed/Reconciled?: Yes Summary/Hosp Course Brief History: 24-year-old 2 para 0 admitted for complaints of contractions since 11:00 last night. Patient has been followed for care with Dr. Hathaway and at [facility] women's clinic. Patient was late to care at her first appointment with Dr. Hathaway and then limited care throughout. Her last period June 18, 2024. This gives due date March 25, 2025. First ultrasound August 28, 2024. Patient was 10 weeks 1 and this confirmed dates. No labs are available at this time. Patient is GBS positive. She is allergic to penicillin so she will be started on vancomycin daily. Patient has a history of chlamydia positive with this . She was given a prescription for erythromycin 500 mg to take twice daily on March 06. And she was also given a prescription for partner treatment. She was also given treatment for positive bacterial vaginosis. Patient did not meat pickler her medication .gonorrhea was negative. Patient had a abnormal normal 1 hour but her 3-hour GTT was normal. Denies social habits. Denies surgery. Denies chronic illness. And she denies leaking or bleeding at this time Peripartum Data Delivery Method: Normal Vaginal Delivery Episiotomy Description: None Laceration Description: yes (vaginal) complications: none Time Spent with Patient Time attestation: Total time spent providing and/or coordinating discharge services: Exam Vital Signs Temp Pulse Resp BP Pulse Ox O2 Del Method 97.8 F 69 16 125/85 H 98 Room Air 03/10/25 07:00 03/10/25 07:00 03/10/25 07:00 03/10/25 07:00 03/10/25 07:00 03/10/25 07:00 Discharge Plan Plan Patient Disposition: HOME (Self Care) Patient condition on transfer: Stable Prescriptions/Referrals Prescriptions/Med Rec: No Action Vitamin 27 mg iron- 800 mcg tablet 1 tab PO QDAY Qty: 60 2RF metronidazole 500 mg tablet 500 mg PO BID 7 Days Qty: 14 0RF erythromycin 500 mg tablet 500 mg PO BID 7 Days Qty: 14 0RF Rx Instructions: for + CT/allergy to PCN Referrals: No Primary/Family,Physician [Primary Care Provider] - Patient/Caregiver Discharge Instructions Meds to Beds: No Discharge Activity: resume usual activities Print Language: Pashto Activity Restrictions/Additional Instructions: Discharge home with baby. Okay to board if the baby is held. Continue vitamins and iron. Tylenol ibuprofen for pain. Discussed danger signs and symptoms and ER precautions. No sex. I discussed sourav the importance of patient picking up her prescription for metronidazole and the partner treatment packet for the azithromycin and giving it to him. Discussed signs symptoms of infection. Social service today and [place] high risk. Return in 3 weeks visit Stand Alone Forms: Emilia Award Info., Patient Portal Info Letter Discharge Order Discharge Orders: Discharge (Routine); Ordered 03/10/25 Ordered By: Bella Ferreira Planned Discharge Date 03/10/25
--- NOTE | 2025-03-10 09:30 | PC.NURSE ---
High risk referral faxed to [facility]
--- NOTE | 2025-03-10 12:50 | PC.NURSE ---
Alana from social media campaign manager, call and informed me that CPS was made aware, Patient is ok to be discharged. If needed CPS will follow up at patients home address.
--- NOTE | 2025-03-10 12:53 | PC.CC ---
Leonor Edwards is a 24-year-old female admitted for labor and delivery care. Electric Switch Tester made contact with Pt at bedside to complete ob assessment and discuss discharge disposition. Role and reason for the contact was explained to Pt. Demographic information was verified. Pt identified friend Taylor Kingsley [phone] as surrogate decision maker. Pt is independent with all ADLs, no source of DME. PCP is Shalonda. At time of discharge patient will return home, friend will provide transportation. Mother plans on formula feeing, has car seat, and all supplies for baby. Mother denies any use of alcohol, no DV, no CPS. Mother reports support system provided by friend.Electric Switch Tester informed Pt CWS will be contacted due to positive THC for both Pt and baby. CWS report was completed with Gricelda Delgado. Discharge Plan: Home Next of Kin: friend Taylor Kingsley [phone] PCP: Shalonda
--- NOTE | 2025-03-10 13:15 | PC.NURSE ---
Spoke to Alana in school social worker, patient is cleared and ok to go home, CWS will follow up at home
== END 2025-03-10 14:20 | disposition home or self-care (01) | DRG 560 ==
LOC: S4SX 03-09 03:29 → S4NX 03-09 04:26
PROVIDERS: Advanced Practice Midwife; Admitting Provider Obstetrics & Gynecology; Visit Provider Specialist
DX: O99.824 Streptococcus B carrier state complicating childbirth (principal); Z37.0 Single live birth; Z3A.37 37 weeks gestation of pregnancy; O70.0 First degree perineal laceration during delivery; O23.593 Infection of other part of genital tract in pregnancy, third trimester; Z88.0 Allergy status to penicillin
CPT/HCPCS: 36415; 59025; 59409; 59899; 80307; 85025; 86703; 86762; 86780; 86850; 86900; 86901; 87340; 87491; 87591; 87661; 94762; J2590; J3490; S0191; A9270